=== PATIENT | female | born 1965 | race Two or more races ===

== ENCOUNTER 2024-01-14 18:48 | Emergency (ER) | payer OTHER ==
[~2024-01-14] VITALS: Ht 160 cm; Wt 112.5 kg
[2024-01-14] MEDS ORDERED: ONDANSETRON HCL 2 MG/ML VIAL IV STA (20:20)
[2024-01-14 22:19] LABS: HEMATOCRIT 39.2 % (36.0-45.00); HEMOGLOBIN 13.3 g/dL (12.0-15.00); MEAN CELL VOLUME 82.7 fL (80.00-100.00); MEAN CORPUSCULAR HEMOGLOBIN 28.1 pg (27.00-32.0); PLATELET COUNT 425 K/uL (150-450); RED BLOOD COUNT 4.75 M/uL (4.00-6.00); RED CELL DISTRIBUTION WIDTH 14.7 % (11.5-14.5)
[2024-01-14 22:30] LABS: CALCIUM 9.7 mg/dL (8.5-10.1); CREATININE SERUM 0.94 mg/dL (0.55-1.02); GFR 60.95; POTASSIUM 4.78 mEq/L (3.5-5.1)
== END 2024-01-14 23:13 | disposition home or self-care (01) ==
LOC: ER 18:50
PROVIDERS: General Practice
DX: R55 Syncope and collapse (principal); R42 Dizziness and giddiness; Z88.0 Allergy status to penicillin
CPT/HCPCS: 36415; 70450; 96365; 99284; J2405

== ENCOUNTER 2025-01-27 21:08 | Emergency (ER) | payer OTHER ==
[~2025-01-27] VITALS: Ht 157.5 cm; Wt 113.4 kg
[2025-01-27] MEDS ORDERED: IRBESARTAN75 MG PO (21:56)
[2025-01-27] MEDS ORDERED: 0.9 % SODIUM CHLORIDE 500 ML IV SCH (23:00)
[2025-01-27] MEDS ORDERED: LEVALBUTEROL HCL 0.63 MG/3 ML SOLUTION IH SCH (23:15)
[2025-01-27] MEDS ORDERED: FAMOTIDINE/PF 20 MG/2 ML VIAL IV ONE (23:15)
[2025-01-27] MEDS ORDERED: ONDANSETRON HCL 2 MG/ML VIAL IV ONE (23:15)
[2025-01-27] MEDS ORDERED: DEXAMETHASONE SODIUM PHOSPHATE 4 MG/ML VIAL IM ONE (23:15)
[2025-01-27] MEDS ORDERED: KETOROLAC TROMETHAMINE 30 MG VIAL IM ONE (23:15)
[2025-01-27] MEDS ORDERED: METHYLPREDNISOLONE SOD SUCC 125 MG VIAL IV ONE (23:15)
[2025-01-27] MEDS ORDERED: ORPHENADRINE CITRATE 30 MG/ML AMPUL IM ONE (23:15)
[2025-01-27] MEDS ORDERED: METHYLPREDNISOLONE SOD SUCC 125 MG VIAL ONE (23:44)
[2025-01-27] MEDS ORDERED: KETOROLAC TROMETHAMINE 30 MG VIAL ONE (23:45)
[2025-01-27] MEDS ORDERED: ORPHENADRINE CITRATE 30 MG/ML AMPUL ONE (23:45)
[2025-01-27] MEDS ORDERED: FAMOTIDINE/PF 20 MG/2 ML VIAL ONE (23:46)
[2025-01-27] MEDS ORDERED: ONDANSETRON HCL 2 MG/ML VIAL ONE (23:46)
[2025-01-27] MEDS ORDERED: DEXAMETHASONE SODIUM PHOSPHATE 4 MG/ML VIAL ONE (23:46)
[2025-01-28 01:23] LABS: BASO % 0.2 % (0.1-1.2); EOS # 0.00 (0.04-0.54); EOS % 0.0 % (0.7-7.0); LYMPH # 1.15 (1.18-3.74); LYMPH % 12.9 % (19.3-53.1); MEAN PLATELET VOLUME 10.40 fl (9.4-12.4); MONO # 0.10 (0.24-0.82); MONO % 1.1 % (4.7-12.5); NEUT # 7.53 (1.56-6.13); NEUT % 84.2 % (34.0-71.1); RED CELL DISTRIBUTION WIDTH 14.4 % (11.6-14.4)
[2025-01-28 01:25] LABS: URINE APPEARANCE Clear; URINE BILIRRUBIN Negative (NEGATIVE); URINE BLOOD Moderate; URINE COLOR Yellow; URINE GLUCOSE Negative (NEGATIVE); URINE KETONE Trace (NEGATIVE); URINE LEUKOCYTE Negative; URINE NITRATE Negative; URINE PROTEIN Negative (NEGATIVE); URINE UROBILINOGEN 1.0 E.U./dl
[2025-01-28 01:31] LABS: URINE BACTERIA 377.8 uL (0.0-1933); URINE EPITHELIAL CELLS 38.4 uL (0.0-38.8); URINE RBC 189.1 uL (0.0-20.8); URINE WBC 6.3 uL (0.0-23.2)
[2025-01-28 01:36] LABS: ERYTHROCYTE SEDIMENTATION RATE 45 mm/hr (0-30); URINE CAST 0.00 uL (0.0-1.40)
[2025-01-28 01:42] LABS: INR 0.96
[2025-01-28] MEDS ORDERED: IPRATROPIUM BROMIDE 0.5 MG/2.5 ML AMPUL.NEB IH ONE (01:50)
[2025-01-28] MEDS ORDERED: LEVALBUTEROL HCL 0.63 MG/3 ML SOLUTION IH ONE (01:51)
[2025-01-28 02:28] LABS: ALT/SGPT 22 U/L (12-78); AST/SGOT 13 U/L (15-37); BILIRUBIN TOTAL 0.27 mg/dL (0.3-1.2); BUN CREA RATIO 23 (7.0-25.0); CREATININE SERUM 1.15 mg/dL (0.55-1.02); GFR 48.13; GLOBULINA 3.6 G/DL (2.4-3.5); GLUCOSE FASTING 191 mg/dL (65-100); OSMOLALITY SERUM 293 MOSM/KG (275-295); PHOSPHOKINASE CREATININE 71 U/L (26-192)
[2025-01-28 02:29] LABS: CKMB < 1.0 NG/ML (0.5-3.6)
[2025-01-28 02:35] LABS: COVID-19 AG NEGATIVE (NEGATIVE)
[2025-01-28] MEDS ORDERED: GABAPENTIN 300 MG CAPSULE PO STA (03:53)
[2025-01-28] MEDS ORDERED: ONDANSETRON HCL 2 MG/ML VIAL ONE ×2 (06:31)
[2025-01-28] MEDS ORDERED: GABAPENTIN300 M2 PO (06:50)
[2025-01-28 07:54] VITALS: BP 120/63; O2SAT 97
== END 2025-01-28 07:56 ==
LOC: ER 21:08
DX: T14.8XXA Other injury of unspecified body region, initial encounter (principal); W19.XXXA Unspecified fall, initial encounter; Y93.89 Activity, other specified; Y92.89 Other specified places as the place of occurrence of the external cause; Y99.9 Unspecified external cause status; M54.2 Cervicalgia; M25.571 Pain in right ankle and joints of right foot; R51.9 Headache, unspecified; R53.81 Other malaise; Z20.822 Contact with and (suspected) exposure to COVID-19; I10 Essential (primary) hypertension; Z88.0 Allergy status to penicillin
CPT/HCPCS: 36415; 70450; 72125; 93005; 94640; 96365; 96366; 96372; 99284; J1100; J1885; J2360; J3490; J7030